=== PATIENT | male | born 1985 | race Caucasian/White ===

== ENCOUNTER 2018-11-28 22:42 | Emergency (ER) | payer OTHER ==
[~2018-11-28] VITALS: Ht 175.3 cm; Wt 88.5 kg
[2018-11-28] MEDS ORDERED: ALEVE PM CAPLE1 EACH PO (23:15)
[2018-11-28] MEDS ORDERED: [UNRECOGNIZED DRUG - OTHER] (23:16)
[2018-11-29 00:05] LABS: ABSOLUTE NEUTROPHILS 8.4 thou/uL (1.4-8.2); BASOPHILS 0.2 % (0.0-2.0); EOSINOPHILS 1.4 % (0.0-3.0); LYMPHOCYTES 11.2 % (24.0-44.0); MCH 31.5 pg (26.0-34.0); MCHC 34.8 g/dL (28.0-37.0); MCV 90.7 fL (80.0-100.0); PLATELET COUNT 173 thou/uL (150-400); POLYS 82.2 % (36.0-66.0); RBC 5.08 mil/uL (4.50-6.00); WBC 10.2 thou/uL (4.0-11.0)
[2018-11-29 00:14] LABS: ANION GAP 8 mmol/L (7-16); BUN 16 mg/dL (7-18); CALCIUM 11.8 mg/dL (8.5-10.1); CHLORIDE 106 mmol/L (98-107); CO2 26 mmol/L (21-32); CREATININE 1.1 mg/dL (0.7-1.3); GLUCOSE 121 mg/dL (74-106); POTASSIUM 4.2 mmol/L (3.5-5.1); SODIUM 140 mmol/L (136-145)
[2018-11-29 00:19] LABS: ALBUMIN 4.3 g/dL (3.4-5.0); SGOT 24 U/L (15-37); SGPT 52 U/L (30-65); TOTAL BILIRUBIN 0.6 mg/dL (<0.1-1.0); TROPONIN-I <0.06 ng/mL (<0.06)
[2018-11-29] MEDS ORDERED: ZOFRAN ODT4 MG DISSOLVE (00:38)
[2018-11-29] MEDS ORDERED: CLONIDINE0.1 PO (00:38)
[2018-11-29 01:34] VITALS: BP 141/97
--- NOTE | 2018-11-29 08:20 | EKG ---
[address] [address] [place] [address] ELECTROCARDIOGRAM REPORT Name: YELENA MARQUEZ Room #: DEP LUPE Wagner#: [id number] Admission: 11/28/18 Attend Phys: Discharge: 11/29/18 Date of : 83 Report #: [id number] THIS REPORT FOR: //name// [facility] ED Test Date: 2018-11-29 Test Time: 00:46:01 Pat Name: YELENA MARQUEZ Department: Room: Gender: [employer] Grader: Emily : 1985 Requested By: Mert Azul Order Number: [id number] MD: Bear Hartley Measurements Intervals [place] Rate: 55 P: 42 PA: 188 QRS: 46 QRSD: 104 T: 22 QT: 402 QTc: 385 Interpretive Statements Sinus bradycardia ST elev, probable normal early repol pattern No previous ECG available for comparison Electronically Signed On 11-29-2018 8:20:38 [employer] by Bear Hartley [email or web address] <ELECTRONICALLY SIGNED> By: Bear Hartley MD, [facility] 11/29/18 0820 0046 0046 Bear Hartley MD, FACC /EPI
== END 2018-11-29 01:34 | disposition home or self-care (01) ==
LOC: ER 22:42
PROVIDERS: Emergency Medicine
DX: I10 Essential (primary) hypertension (principal); M54.30 Sciatica, unspecified side; Z88.5 Allergy status to narcotic agent